=== PATIENT | female | born 1995 | race Caucasian/White ===

== ENCOUNTER 2017-02-07 21:32 | Emergency (ER) | payer BC, MEDICAID ==
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
[2017-02-07 22:25] LABS: ACETAMINOPHEN < 3.0 ug/mL; CHLORIDE,CL 108 mmol/L (98-110); SODIUM,NA 137 mmol/L (136-146)
[2017-02-07 23:57] VITALS: BP 129/86
== END 2017-02-07 23:37 ==
LOC: MW.ED 21:32
DX: O9A.219 Injury, poisoning and certain other consequences of external causes complicating pregnancy, unspecified trimester (principal); O99.340 Other mental disorders complicating pregnancy, unspecified trimester; T43.222A Poisoning by selective serotonin reuptake inhibitors, intentional self-harm, initial encounter; K21.9 Gastro-esophageal reflux disease without esophagitis; Z88.1 Allergy status to other antibiotic agents; Z86.2 Personal history of diseases of the blood and blood-forming organs and certain disorders involving the immune mechanism
CPT/HCPCS: 36415; 80053; 80305; 81001; 81025; 84443; 85025; 93005; 99285; G0480; 99284

== ENCOUNTER 2017-03-11 12:33 | Emergency (ER) | payer BC, MEDICAID ==
[2017-03-11] MEDS ORDERED: Ondansetron 4 MG/2 ML SDV IVPUSH ONE (13:01)
[2017-03-11] MEDS ORDERED: Sodium Chloride 0.9% 1,000 ML IV ONE (13:01)
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
[2017-03-11 13:42] LABS: CHLORIDE,CL 106 mmol/L (98-110); SODIUM,NA 137 mmol/L (136-146)
--- NOTE | 2017-03-11 14:25 | US ---
EXAMINATION: Transabdominal obstetric ultrasound HISTORY: Evaluate and placenta COMPARISON: None TECHNIQUE: Grayscale FINDINGS: There is a single live intrauterine demonstrated. The biparietal diameter measure s 2.7 cm, head circumference measures 10.3 cm, abdominal circumference measures 9.4 cm, the femoral l ength measures 1.8 cm. This gives an estimated gestational age of 15 weeks and 2 days with an estimat ed date of delivery at 08/31/2017. The weight is 122 g. Overall the fetus is within the 2nd perce ntile by LMP. The heart rate is 150 bpm. The placenta is anterior and initially demonstrated th ickening of the underlying uterine wall, however on additional imaging obtained, this was absent sugg esting a contraction. IMPRESSION: 1. Single live intrauterine , measuring 15 weeks and 2 days by dates, the gestational age by LMP is 19 weeks and 2 days. 2. The appendix is not visualized.
[2017-03-11 15:32] VITALS: BP 105/70
== END 2017-03-11 15:20 | disposition home or self-care (01) ==
LOC: MW.ED 12:33
DX: O99.89 Other specified diseases and conditions complicating pregnancy, childbirth and the puerperium (principal); R10.2 Pelvic and perineal pain; O99.612 Diseases of the digestive system complicating pregnancy, second trimester; K21.9 Gastro-esophageal reflux disease without esophagitis; Z79.899 Other long term (current) drug therapy; Z86.2 Personal history of diseases of the blood and blood-forming organs and certain disorders involving the immune mechanism; Z88.1 Allergy status to other antibiotic agents; Z3A.18 18 weeks gestation of pregnancy
CPT/HCPCS: 36415; 76805; 80053; 81001; 84702; 85025; 93005; 96361; 96374; 99284; J2405; J7040; 99283

== ENCOUNTER 2017-06-15 20:01 | Emergency (ER) | payer BC, MEDICAID ==
[2017-06-15] MEDS ORDERED: Sodium Chloride 0.9% 1,000 ML IV ONE (20:21)
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
[2017-06-15 21:01] LABS: CHLORIDE,CL 110 mmol/L (98-110); SODIUM,NA 137 mmol/L (136-146)
[2017-06-15 21:46] VITALS: BP 104/59
== END 2017-06-15 21:50 | disposition home or self-care (01) ==
LOC: MW.ED 20:01
DX: O99.513 Diseases of the respiratory system complicating pregnancy, third trimester (principal); J01.00 Acute maxillary sinusitis, unspecified; B34.9 Viral infection, unspecified; Z88.1 Allergy status to other antibiotic agents; Z3A.29 29 weeks gestation of pregnancy
CPT/HCPCS: 36415; 80053; 81001; 85025; 87081; 87804; 87880; 96360; 99283; J7040; 99284

== ENCOUNTER 2017-07-09 18:25 | Observation (INO) | payer BC, MEDICAID ==
[2017-07-09] MEDS ORDERED: Sodium Chloride 0.9% 2.5 ML Syringe FLUSH PRN (19:17)
[2017-07-09] MEDS ORDERED: Sodium Chloride 0.9% 10 ML Syringe FLUSH PRN (19:17)
[2017-07-09] MEDS ORDERED: Sodium Chloride 0.9% 1,000 ML IV ONE ×3 (19:17→21:35)
[2017-07-09] MEDS ORDERED: Ondansetron 4 MG/2 ML SDV IVPUSH ONE ×2 (19:17→21:05)
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
[2017-07-09 19:59] LABS: CHLORIDE,CL 109 mmol/L (98-110); SODIUM,NA 136 mmol/L (136-146)
[2017-07-09] MEDS ORDERED: Acetaminophen 325 MG Tab PO PRN (23:59)
[2017-07-10] MEDS: Ondansetron 4 MG/2 ML SDV IVPUSH PRN ×3 (00:26→14:33)
[2017-07-10] MEDS: Sodium Chloride 0.9% 1,000 ML IV SCH ×2 (04:09→09:20)
[2017-07-10 13:49] VITALS: BP 126/74
--- NOTE | 2017-07-10 15:36 | PCM.PN ---
- General Info Date of Service: 07/10/17 Functional Status: Reports: Pain Controlled - Review of Systems General: Reports: No Symptoms HEENT: Reports: No Symptoms Pulmonary: Reports: No Symptoms Cardiovascular: Reports: No Symptoms Gastrointestinal: Reports: No Symptoms Genitourinary: Reports: No Symptoms Musculoskeletal: Reports: No Symptoms Skin: Reports: No Symptoms Neurological: Reports: No Symptoms Psychiatric: Reports: No Symptoms - Patient Data Vitals - Most Recent: Last Vital Signs Temp 35.8 C 07/10/17 12:00 Pulse 92 07/10/17 12:00 Resp 16 07/10/17 12:00 BP 126/74 07/10/17 12:00 Pulse Ox 100 07/10/17 12:00 Weight - Most Recent: 73.164 kg I&O - Last 24 Hours: Intake & Output 07/10/17 07/10/17 07/10/17 06:59 14:59 22:59 Intake Total 1350 Output Total 300 Balance 1050 Lab Results Last 24 Hours: Laboratory Results - last 24 hr 07/10/17 Range/Units 04:34 WBC 4.87 (4.0-11.0) K/uL RBC 3.28 L (4.30-5.90) M/uL Hgb 9.4 L (12.0-16.0) g/dL Hct 28.1 L (36.0-46.0) % MCV 85.7 (80.0-98.0) fL MCH 28.7 (27.0-32.0) pg MCHC 33.5 (31.0-37.0) g/dL RDW Std Deviation 43.0 (28.0-62.0) fl RDW Coeff of Yael 14 (11.0-15.0) % Plt Count 124 L (150-400) K/uL MPV 11.70 (7.40-12.00) fL Add Manual Diff YES Neutrophils % (Manual) 69 (48.0-80.0) % Band Neutrophils % 6 % Lymphocytes % (Manual) 15 L (16.0-40.0) % Monocytes % (Manual) 10 (0.0-15.0) % Nucleated RBC % 0.0 /100WBC Absolute Seg Neuts 3.4 (1.4-5.7) Band Neutrophils # 0.3 Lymphocytes # (Manual) 0.7 (0.6-2.4) Monocytes # (Manual) 0.5 (0.0-0.8) Nucleated RBCs # 0 K/uL Med Orders - Current: Current Medications Acetaminophen (Tylenol) 325 - 650 mg PO Q4H PRN PRN Reason: Pain Last Admin: 07/10/17 00:26 Dose: 650 mg Sodium Chloride (Normal Saline) 1,000 mls @ 200 mls/hr IV ASDIRECTED SONIA Last Admin: 07/10/17 09:20 Dose: 200 mls/hr Ondansetron HCl (Zofran) 4 mg IVPUSH Q4H PRN PRN Reason: Nausea/Vomiting Last Admin: 07/10/17 14:33 Dose: 4 mg Sodium Chloride (Saline Flush) 10 ml FLUSH ASDIRECTED PRN PRN Reason: Keep Vein Open Last Admin: 07/09/17 19:33 Dose: 10 ml Sodium Chloride (Saline Flush) 2.5 ml FLUSH ASDIRECTED PRN PRN Reason: Keep Vein Open Last Admin: 07/09/17 19:33 Dose: 2.5 ml Discontinued Medications Sodium Chloride (Normal Saline) 1,000 mls @ 999 mls/hr IV STAT ONE Stop: 07/09/17 20:17 Last Admin: 07/09/17 19:34 Dose: 999 mls/hr Sodium Chloride (Normal Saline) 1,000 mls @ 999 mls/hr IV STAT ONE Stop: 07/09/17 21:09 Last Admin: 07/09/17 20:18 Dose: 999 mls/hr Sodium Chloride (Normal Saline) 1,000 mls @ 125 mls/hr IV STAT ONE Stop: 07/10/17 05:34 Last Admin: 07/09/17 21:36 Dose: 125 mls/hr Ondansetron HCl (Zofran) 4 mg IVPUSH ONETIME ONE Stop: 07/09/17 19:18 Last Admin: 07/09/17 19:33 Dose: 4 mg Ondansetron HCl (Zofran) 4 mg IVPUSH ONETIME ONE Stop: 07/09/17 21:06 Last Admin: 07/09/17 21:35 Dose: 4 mg - Exam General: Alert, Oriented HEENT: Pupils Equal, Pupils Reactive, EOMI, Mucous Membr. Moist/[place] Neck: Supple Lungs: Clear to Auscultation, Normal Respiratory Effort Cardiovascular: Regular Rate, Regular Rhythm GI/Abdominal Exam: Normal Bowel Sounds, Soft, Non-Tender, No Organomegaly, No Distention, No Abnormal Bruit, No Mass, Pelvis Stable (Female) Exam: Normal External Exam, Normal Speculum Exam, Normal Bimanual Exam Back Exam: Normal Inspection, Full Range of Motion Extremities: Normal Inspection, Normal Range of Motion, Non-Tender, No Pedal Edema, Normal Capillary Refill Skin: Warm, Dry, Intact Wound/Incisions: Healing Well Neurological: No New Focal Deficit Psy/Mental Status: Alert, Normal Affect, Normal Mood - Problem List Review Problem List Initiated/Reviewed/Updated: Yes - My Orders Last 24 Hours: My Active Orders 07/09/17 23:45 Sodium Chloride 0.9% [Normal Saline] 1,000 ml IV ASDIRECTED 07/09/17 23:59 Acetaminophen [Tylenol] 325 - 650 mg PO Q4H PRN 07/10/17 00:01 Ondansetron [Zofran] 4 mg IVPUSH Q4H PRN 07/10/17 08:00 Heart Tones [RC] Q12H Vital Signs [RC] Q12H 07/10/17 Breakfast Regular Diet [DIET] - Assessment Assessment:: Intrauterine 30+ week and the patient is to have upper respiratory tract infection and nose and vomited she is admitted through the emergency room for hydration the patient is not hydrated reasonably well voiding without any problem and had lab work is normal - Plan Plan:: The patient expressed her desire to go home would send her home with a prescription of Zofran 4 mg sublingual for nausea and vomiting and I told her to come to the office on Saturday for follow-up exam
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
== END 2017-07-10 16:50 | disposition home or self-care (01) ==
LOC: MW.ED 18:25 → MW.MS 21:47
PROVIDERS: ADMIT Obstetrics & Gynecology; ATTEND Obstetrics & Gynecology
DX: O21.8 Other vomiting complicating pregnancy (principal); O99.513 Diseases of the respiratory system complicating pregnancy, third trimester; J06.9 Acute upper respiratory infection, unspecified; Z3A.32 32 weeks gestation of pregnancy; Z88.1 Allergy status to other antibiotic agents; Z91.048 Other nonmedicinal substance allergy status
CPT/HCPCS: 36415; 80053; 81001; 85025; 96361; 96374; 96376; 99285; A9270; G0378; J2405; J7040; 99284

== ENCOUNTER 2017-08-26 04:55 | Inpatient (IN) | payer BC, MEDICAID ==
[2017-08-26] MEDS: Lactated Ringers 1,000 ML IV SCH ×2 (05:30→07:50)
[2017-08-26] MEDS ORDERED: Sodium Chloride 0.9% 2.5 ML Syringe FLUSH PRN (05:32)
[2017-08-26] MEDS ORDERED: Sodium Chloride 0.9% 10 ML Syringe FLUSH PRN (05:32)
[2017-08-26] MEDS ORDERED: Oxytocin/0.9 % Sodium Chloride 30 UNIT/500 ML BAG IV SCH (05:45)
[2017-08-26] MEDS: Citric Acid/Sodium Citrate Solution 30 ML Cup PO SCH ×2 (07:08→08:03)
[2017-08-26] MEDS ORDERED: Octyl 2-Cyanoacrylate 1 Tube ONE (07:30)
[2017-08-26] MEDS ORDERED: Propofol 200 MG/20 ML SDV ONE (07:35)
[2017-08-26] MEDS ORDERED: Ketorolac 30 MG/ML SDV ONE (07:36)
[2017-08-26] MEDS ORDERED: Ondansetron 4 MG/2 ML SDV ONE (07:36)
[2017-08-26] MEDS ORDERED: Morphine PF 1 MG/ML Amp ONE (07:39)
[2017-08-26] MEDS ORDERED: ePHEDrine 50 MG/ML SDV ONE (07:39)
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
[2017-08-26] MEDS: Ketorolac 30 MG/ML SDV IVPUSH SCH ×4 (08:35→21:01)
[2017-08-26] MEDS ORDERED: Oxytocin 10 Units/1 ML SDV ONE (08:45)
--- NOTE | 2017-08-26 08:57 | PCM.OPNOTE ---
- General Post-Op/Procedure Note Date of Surgery/Procedure: 08/26/17 Operative Procedure(s): Repeat C/section Pre Op Diagnosis: IUP 39wks, previous C/section. Post-Op Diagnosis: Same Anesthesia Technique: Spinal Primary Surgeon: Rodolfo Umanzor Belt Press Operator: Madeleine Rico EBL in mLs: 600 Complications: None Condition: Good
[2017-08-26] MEDS ORDERED: Acetaminophen/oxyCODONE 325-5 MG Tab PO PRN ×3 (08:59→09:44)
[2017-08-26] MEDS ORDERED: Lanolin 100% Cream 7 GM Tube TOP PRN (08:59)
[2017-08-26] MEDS ORDERED: Bisacodyl 10 MG Supp RECTAL PRN (08:59)
[2017-08-26] MEDS ORDERED: Ondansetron 4 MG/2 ML SDV IV PRN (08:59)
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
[2017-08-26] MEDS ORDERED: Lactated Ringers 1,000 ML IV SCH (09:00)
--- NOTE | 2017-08-26 09:32 | PCM.POSTAN ---
POST ANESTHESIA ASSESSMENT - MENTAL STATUS Mental Status: Alert, Oriented - RESPIRATORY Respiratory Status: Respiratory Rate WNL, Airway Patent, O2 Saturation Stable - CARDIOVASCULAR CV Status: Pulse Rate WNL, Blood Pressure Stable - GASTROINTESTINAL GI Status: No Symptoms - POST OP HYDRATION Hydration Status: Adequate & Stable
[2017-08-26] MEDS ORDERED: fentaNYL 100 MCG/2 ML SDV IVPUSH PRN (09:44)
[2017-08-26] MEDS: Nalbuphine 10 MG/1 ML Vial IVPUSH PRN ×3 (10:08→17:20)
[2017-08-26] MEDS: Docusate Sodium 100 MG Cap PO SCH ×2 (10:57→20:59)
--- NOTE | 2017-08-26 14:18 | PCM48HPAN ---
Post Anesthesia Note - EVALUATION WITHIN 48HRS OF ANESTHETIC Vital Signs in Normal Range: Yes Patient Participated in Evaluation: Yes Respiratory Function Stable: Yes Airway Patent: Yes Cardiovascular Function Stable: Yes Hydration Status Stable: Yes Pain Control Satisfactory: Yes Nausea and Vomiting Control Satisfactory: Yes Mental Status Recovered: Yes Resp Rate: 18 - COMMENTS/OBSERVATIONS Free Text/Narrative:: Pt is having some problems with pruritis r/t the duramorph. She has received one dose of nubain and states it didn't help. Discussed with pt's nurse trying iv benadryl next. No apparent anesthesia complications.
[2017-08-26] MEDS: diphenhydrAMINE 50 MG/ML SDV IVPUSH PRN ×2 (14:21→20:59)
--- NOTE | 2017-08-26 21:03 | OR ---
SURGEON: Rodolfo Umanzor MD DATE OF PROCEDURE: PREOPERATIVE DIAGNOSES: Intrauterine at 39 weeks, previous section x2. POSTOPERATIVE DIAGNOSES: Intrauterine at 39 weeks, previous section x2. OPERATION PERFORMED: Repeat low transverse section. GETTERER: Madeleine Rico CNM. ANESTHESIA: Spinal. ANESTHESIOLOGIST: Anthony Hernandez and Dr. Guerra. ESTIMATED BLOOD LOSS: 600 mL. COMPLICATIONS: None. FINDING: Male fetus. score reported to be 8 and 9. The weight is not available at this time. INDICATION FOR SURGERY: The patient is aged 22. She had 2 previous sections. She is term. She is followed in our office without any significant problem. Her GBS status was negative. She is admitted for elective repeat section. PROCEDURE IN DETAIL: The patient was brought to the OR, properly identified, and after adequate level of the spinal anesthesia with a Brady catheter in the bladder, time-out was taken, and the patient was prepped and draped in sterile fashion as usual. Low transverse Pfannenstiel skin incision was done. Eddie fascia and rectus fascia were opened in direction of the incision. The 2 recti muscles were and the peritoneal cavity was entered. The bladder flap was raised in the usual manner pushing the bladder away from the lower uterine segment. Low transverse uterine incision was done, extended manually with the hand, fetus was in a vertex position, delivered without any problem. Fetus cried immediately and was male and the score reported to be 8 and 9. Then, the placenta delivered spontaneous, complete, and intact, and repair of the lower uterine segment was done with 2-0 Vicryl continuous interlocking for hemostasis. Reperitonealization done with 3-0 Vicryl continuous. The peritoneal cavity evacuated completely from all blood and blood clot and closed with 3-0 Vicryl continuous and then the rectus fascia was closed with #1 PDS continuous. The Eddie fascia with 3-0 Vicryl continuous and skin closed in a subcuticular manner using 3-0 Vicryl on a Cornelius needle and Dermabond. Instrument and sponge count was correct. The patient tolerated the procedure well and went to recovery room in stable general condition. DIVINA / AMBAR /[id number]
[2017-08-27] MEDS: Ketorolac 30 MG/ML SDV IVPUSH SCH ×2 (03:13→08:32)
[2017-08-27] MEDS: diphenhydrAMINE 50 MG/ML SDV IVPUSH PRN ×2 (03:14→09:14)
[2017-08-27] MEDS: Nalbuphine 10 MG/1 ML Vial IVPUSH PRN (04:29)
[2017-08-27] MEDS: Docusate Sodium 100 MG Cap PO SCH ×2 (08:32→20:39)
--- NOTE | 2017-08-27 08:34 | PCM.PNPP ---
- General Info Date of Service: 08/27/17 Functional Status: Reports: Pain Controlled - Review of Systems General: Reports: No Symptoms HEENT: Reports: No Symptoms Pulmonary: Reports: No Symptoms Cardiovascular: Reports: No Symptoms Gastrointestinal: Reports: No Symptoms Genitourinary: Reports: No Symptoms Musculoskeletal: Reports: No Symptoms Skin: Reports: No Symptoms Neurological: Reports: No Symptoms Psychiatric: Reports: No Symptoms - General Info Date of Service: 08/27/17 - Patient Data Vital Signs - Most Recent: Last Vital Signs Temp 36.4 C 08/27/17 07:17 Pulse 72 08/27/17 07:17 Resp 16 08/27/17 08:31 BP 124/79 08/27/17 07:17 Pulse Ox 100 08/27/17 08:31 Weight - Most Recent: 73.936 kg I&O - Last 24 Hours: Intake & Output 08/26/17 08/27/17 08/27/17 22:59 06:59 14:59 Output Total 650 1000 Balance -650 -1000 Lab Results - Last 24 Hours: Laboratory Results - last 24 hr 08/27/17 Range/Units 05:35 Hgb 8.9 L (12.0-16.0) g/dL Hct 28.0 L (36.0-46.0) % Med Orders - Current: Current Medications Bisacodyl (Dulcolax) 10 mg RECTAL .ONCE PRN PRN Reason: Constipation Citric Acid/Sodium Citrate (Bicitra Solution) 30 ml PO .ONCE SONIA Last Admin: 08/26/17 08:03 Dose: 30 ml Diphenhydramine HCl (Benadryl) 25 mg IVPUSH Q6H PRN PRN Reason: Itching or Nausea Last Admin: 08/27/17 03:14 Dose: 25 mg Docusate Sodium (Colace) 100 mg PO BID SONIA Last Admin: 08/27/17 08:32 Dose: 100 mg Emollient Ointment (Lansinoh Hpa) 0 gm TOP ASDIRECTED PRN PRN Reason: Sore Nipples Fentanyl (Sublimaze) 50 mcg IVPUSH Q5M PRN PRN Reason: Pain (severe 7-10) Stop: 08/27/17 09:44 Lactated Ringer's (Ringers, Lactated) 1,000 mls @ 500 mls/hr IV .BOLUS SONIA Last Admin: 08/26/17 07:50 Dose: 500 mls/hr Oxytocin/Sodium Chloride (Oxytocin 30 Unit/500 Ml-Ns) 30 unit in 500 mls @ 250 mls/hr IV TITRATE [facility] Lactated Ringer's (Ringers, Lactated) 1,000 mls @ 125 mls/hr IV ASDIRECTED [facility] Ibuprofen (Motrin) 800 mg PO Q8H PRN PRN Reason: mild pain or fever Ketorolac Tromethamine (Toradol) 30 mg IVPUSH Q6H SONIA Stop: 08/27/17 09:01 Last Admin: 08/27/17 08:32 Dose: 30 mg Nalbuphine HCl (Nubain) 2.5 mg IVPUSH Q3H PRN PRN Reason: Pruritis Stop: 08/27/17 09:44 Last Admin: 08/27/17 04:29 Dose: 2.5 mg Ondansetron HCl (Zofran) 4 mg IV Q4H PRN PRN Reason: Nausea/Vomiting Last Admin: 08/26/17 13:16 Dose: 4 mg Oxycodone/Acetaminophen (Percocet 325-5 Mg) 1 tab PO Q4H PRN PRN Reason: Pain (moderate 4-6) Oxycodone/Acetaminophen (Percocet 325-5 Mg) 2 tab PO Q4H PRN PRN Reason: Pain (moderate 4-6) Oxycodone/Acetaminophen (Percocet 325-5 Mg) 1 tab PO ONETIME PRN PRN Reason: Pain (moderate 4-6) Sodium Chloride (Saline Flush) 10 ml FLUSH ASDIRECTED PRN PRN Reason: Keep Vein Open Sodium Chloride (Saline Flush) 2.5 ml FLUSH ASDIRECTED PRN PRN Reason: Keep Vein Open Discontinued Medications Ephedrine Sulfate (Ephedrine Sulfate) Confirm Administered Dose 100 mg .ROUTE .STK-MED ONE Stop: 08/26/17 07:40 Ketorolac Tromethamine (Toradol) Confirm Administered Dose 30 mg .ROUTE .STK- MED ONE Stop: 08/26/17 07:37 Morphine Sulfate (Duramorph Pf) Confirm Administered Dose 1 mg .ROUTE .STK-MED ONE Stop: 08/26/17 07:40 Octyl Cyanoacrylate (Dermabond Advance) Confirm Administered Dose 1 applic .ROUTE .STK-MED ONE Stop: 08/26/17 07:31 Ondansetron HCl (Zofran) Confirm Administered Dose 4 mg .ROUTE .STK-MED ONE Stop: 08/26/17 07:37 Oxytocin (Pitocin) Confirm Administered Dose 10 unit .ROUTE .STK-MED ONE Stop: 08/26/17 08:46 Propofol (Diprivan 20 Ml) Confirm Administered Dose 200 mg .ROUTE .STK-MED ONE Stop: 08/26/17 07:36 - Infant Interaction Infant Disposition, : [place] in Room with Family Infant Interaction: Holding Feeding: Attempted ; Nursed Fair/Poor Support Person: Significant Other - Recovery Exam Fundal Tone: Firm Fundal Level: 1 Fingerbreadths Below Umbilicus Fundal Placement: Midline Lochia Amount: Scant Lochia Color: Rubra/Red Perineum Description: Intact, Minimal Bruising/Swelling Episiotomy/Laceration: None Bladder Status: Nonpalpable, Indwelling Catheter in Place Urinary Elimination: Indwelling Catheter - Exam General: Alert, Oriented HEENT: Pupils Equal Neck: Supple Lungs: Clear to Auscultation, Normal Respiratory Effort Cardiovascular: Regular Rate, Regular Rhythm GI/Abdominal Exam: Normal Bowel Sounds, Soft, Non-Tender, No Organomegaly, No Distention, No Abnormal Bruit, No Mass, Pelvis Stable Extremities: Normal Inspection, Normal Range of Motion, Non-Tender, No Pedal Edema, Normal Capillary Refill Skin: Warm, Dry, Intact Wound/Incisions: Healing Well Neurological: No New Focal Deficit Psy/Mental Status: Alert, Normal Affect, Normal Mood - Problem List Review Problem List Initiated/Reviewed/Updated: Yes - My Orders Last 24 Hours: My Active Orders 08/26/17 08:59 Acetaminophen/oxyCODONE [Percocet 325-5 MG] 1 tab PO Q4H PRN Acetaminophen/oxyCODONE [Percocet 325-5 MG] 2 tab PO Q4H PRN Bisacodyl [Dulcolax] 10 mg RECTAL .ONCE PRN Ibuprofen [Motrin] 800 mg PO Q8H PRN Lanolin [Lansinoh HPA] See Dose Instructions TOP ASDIRECTED PRN Ondansetron [Zofran] 4 mg IV Q4H PRN diphenhydrAMINE [Benadryl] 25 mg IVPUSH Q6H PRN 08/26/17 09:00 Patient Status [ADT] Routine Ambulate [RC] PER UNIT ROUTINE Antiembolic Devices [RC] PER UNIT ROUTINE Communication Order [RC] PER UNIT ROUTINE Communication Order [RC] PER UNIT ROUTINE Communication Order [RC] Per Unit Routine May Shower [RC] ASDIRECTED RT Incentive Spirometry [RC] Q2HWA Vital Signs [RC] PER UNIT ROUTINE Docusate Sodium [Colace] 100 mg PO BID Ketorolac [Toradol] 30 mg IVPUSH Q6H Lactated Ringers [Ringers, Lactated] 1,000 ml IV ASDIRECTED Assess Lochia [WOMSER] Per Unit Routine Assess Uterine Involution [WOMSER] Per Unit Routine Breast Pump [WOMSER] Per Unit Routine Peripheral IV Discontinue [OM.PC] Routine Sequential Compression Device [OM.PC] Per Unit Routine 08/26/17 Lunch Regular Diet [DIET] - Assessment Assessment:: Status post repeat section postoperative day #1 patient doing well incision is clean dry normal lochia she is on regular diet she is ambulatory Brady catheter is DC'd and she is voiding freely without any problem. We are planning to discharge patient home in a.m. - Plan Plan:: IUP 39 wks admitted for elective repeat C/section.
[2017-08-27] MEDS: Ibuprofen 800 MG Tab PO PRN (16:26)
[2017-08-28] MEDS: Ibuprofen 800 MG Tab PO PRN (00:26)
[2017-08-28] MEDS: Docusate Sodium 100 MG Cap PO SCH (08:00)
--- NOTE | 2017-08-28 08:05 | PCM.DCSUM1 ---
Discharge Summary - Hospital Course Free Text/Narrative:: Discharge home with . Follow up in 10 days and then in 6 weeks or sooner if needed. - Discharge Data Discharge Date: 08/28/17 Discharge Disposition: Home, Self-Care 01 Condition: Good - Patient Summary/Data Operative Procedure(s) Performed: Repeat C/section - Patient Instructions Diet: Usual Diet as Tolerated Activity: As Tolerated, No Strenuous Activities, Rest and Relax Today Driving: May Drive Today Showering/Bathing: May Shower Wound/Incision Care: Keep Operative Site/Wound Site Clean and Dry Notify Provider of: Fever, Increased Pain, Swelling and Redness, Drainage, Nausea and/or Vomiting Other/Special Instructions: Discharge home with infant. Follow up in 10 days and then in 6 weeks or sooner if needed. - Discharge Plan Home Medications: Home Meds Pnv No.95/Ferrous Fum/Folic AC [ Multivitamin Tablet] 1 each PO DAILY [History] Patient Handouts: Home Care Instructions for Mom, Care After Delivery Referrals: [facility] [Outside] Rodolfo Umanzor MD [Physician] - (1 week- September 04 @ 10:45am w/ Dr. Umanzor 6 week- October 07 @ 8:30am w/ Dr. Umanzor ) - General Info Date of Service: 08/28/17 Admission Dx/Problem (Free Text: Patient Status Order with Admit Dx/Problem 08/26/17 05:32 Patient Status [ADT] Routine Admission Diagnosis/Problem Admission Diagnosis/Problem Functional Status: Reports: Pain Controlled, Tolerating Diet, Ambulating, Urinating - Review of Systems General: Reports: No Symptoms HEENT: Reports: No Symptoms Pulmonary: Reports: No Symptoms Cardiovascular: Reports: No Symptoms Gastrointestinal: Reports: No Symptoms Genitourinary: Reports: No Symptoms Musculoskeletal: Reports: No Symptoms Skin: Reports: No Symptoms Neurological: Reports: No Symptoms Psychiatric: Reports: No Symptoms - Patient Data Vitals - Most Recent: Last Vital Signs Temp 36.6 C 08/28/17 05:00 Pulse 82 08/28/17 05:00 Resp 18 08/28/17 05:00 BP 108/73 08/28/17 05:00 Pulse Ox 96 08/28/17 05:00 Weight - Most Recent: 73.936 kg Med Orders - Current: Current Medications Bisacodyl (Dulcolax) 10 mg RECTAL .ONCE PRN PRN Reason: Constipation Citric Acid/Sodium Citrate (Bicitra Solution) 30 ml PO .ONCE SONIA Last Admin: 08/26/17 08:03 Dose: 30 ml Diphenhydramine HCl (Benadryl) 25 mg IVPUSH Q6H PRN PRN Reason: Itching or Nausea Last Admin: 08/27/17 09:14 Dose: 25 mg Docusate Sodium (Colace) 100 mg PO BID [facility] Last Admin: 08/28/17 08:00 Dose: 100 mg Emollient Ointment (Lansinoh Hpa) 0 gm TOP ASDIRECTED PRN PRN Reason: Sore Nipples Lactated Ringer's (Ringers, Lactated) 1,000 mls @ 500 mls/hr IV .BOLUS [facility] Last Admin: 08/26/17 07:50 Dose: 500 mls/hr Oxytocin/Sodium Chloride (Oxytocin 30 Unit/500 Ml-Ns) 30 unit in 500 mls @ 250 mls/hr IV TITRATE [facility] Lactated Ringer's (Ringers, Lactated) 1,000 mls @ 125 mls/hr IV ASDIRECTED [facility] Ibuprofen (Motrin) 800 mg PO Q8H PRN PRN Reason: mild pain or fever Last Admin: 08/28/17 00:26 Dose: 800 mg Ondansetron HCl (Zofran) 4 mg IV Q4H PRN PRN Reason: Nausea/Vomiting Last Admin: 08/26/17 13:16 Dose: 4 mg Oxycodone/Acetaminophen (Percocet 325-5 Mg) 1 tab PO Q4H PRN PRN Reason: Pain (moderate 4-6) Last Admin: 08/27/17 12:44 Dose: 1 tab Oxycodone/Acetaminophen (Percocet 325-5 Mg) 2 tab PO Q4H PRN PRN Reason: Pain (moderate 4-6) Last Admin: 08/27/17 19:26 Dose: 2 tab Oxycodone/Acetaminophen (Percocet 325-5 Mg) 1 tab PO ONETIME PRN PRN Reason: Pain (moderate 4-6) Last Admin: 08/28/17 07:59 Dose: 1 tab Sodium Chloride (Saline Flush) 10 ml FLUSH ASDIRECTED PRN PRN Reason: Keep Vein Open Sodium Chloride (Saline Flush) 2.5 ml FLUSH ASDIRECTED PRN PRN Reason: Keep Vein Open Discontinued Medications Ephedrine Sulfate (Ephedrine Sulfate) Confirm Administered Dose 100 mg .ROUTE .STK-MED ONE Stop: 08/26/17 07:40 Fentanyl (Sublimaze) 50 mcg IVPUSH Q5M PRN PRN Reason: Pain (severe 7-10) Stop: 08/27/17 09:44 Ketorolac Tromethamine (Toradol) Confirm Administered Dose 30 mg .ROUTE .STK- MED ONE Stop: 08/26/17 07:37 Ketorolac Tromethamine (Toradol) 30 mg IVPUSH Q6H SONIA Stop: 08/27/17 09:01 Last Admin: 08/27/17 08:32 Dose: 30 mg Morphine Sulfate (Duramorph Pf) Confirm Administered Dose 1 mg .ROUTE .STK-MED ONE Stop: 08/26/17 07:40 Nalbuphine HCl (Nubain) 2.5 mg IVPUSH Q3H PRN PRN Reason: Pruritis Stop: 08/27/17 09:44 Last Admin: 08/27/17 04:29 Dose: 2.5 mg Octyl Cyanoacrylate (Dermabond Advance) Confirm Administered Dose 1 applic .ROUTE .STK-MED ONE Stop: 08/26/17 07:31 Ondansetron HCl (Zofran) Confirm Administered Dose 4 mg .ROUTE .STK-MED ONE Stop: 08/26/17 07:37 Oxytocin (Pitocin) Confirm Administered Dose 10 unit .ROUTE .STK-MED ONE Stop: 08/26/17 08:46 Propofol (Diprivan 20 Ml) Confirm Administered Dose 200 mg .ROUTE .STK-MED ONE Stop: 08/26/17 07:36 - Exam General: Reports: Alert, Oriented, Cooperative, No Acute Distress Lungs: Reports: Clear to Auscultation, Normal Respiratory Effort Cardiovascular: Reports: Regular Rate, Regular Rhythm, No Murmurs GI/Abdominal Exam: Soft, Non-Tender (Female) Exam: Vaginal Bleeding Rectal (Female) Exam: Deferred Back Exam: Reports: Full Range of Motion Extremities: Normal Range of Motion, Non-Tender, No Pedal Edema, Normal Capillary Refill Skin: Reports: Warm, Dry, Intact Wound/Incisions: Reports: Healing Well, No Drainage Neurological: Reports: No New Focal Deficit, Normal Speech, Normal Tone Psy/Mental Status: Reports: Alert, Normal Affect, Normal Mood *Q Meaningful Use (DIS) - VTE *Q VTE Criteria *Q: - Stroke *Q Stroke Criteria *Q: - AMI *Q AMI Criteria *Q:
[2017-08-28 08:40] VITALS: BP 119/75
[2017-08-28] MEDS ORDERED: Measles, Mumps & Rubella Vaccine 0.5 ML SDV SUBCUT ONE (08:51)
== END 2017-08-28 09:50 | disposition home or self-care (01) | DRG 540 ==
LOC: MW.OB 04:55
PROVIDERS: ADMIT Obstetrics & Gynecology; ATTEND Obstetrics & Gynecology
PROC: 10D00Z1 Extraction of Products of Conception, Low, Open Approach (ICD-10-PCS; principal; 2017-08-26)
DX: O34.211 Maternal care for low transverse scar from previous cesarean delivery (principal); Z3A.39 39 weeks gestation of pregnancy; Z37.0 Single live birth
CPT/HCPCS: 01961; 36415; 85014; 85018; 85027; 86850; 86900; 86901; 90707; A9270-GY; G0010; J1200; J1885; J2274; J2300; J2405; J2590; J2704; J7120

== ENCOUNTER 2017-12-31 13:42 | Emergency (ER) | payer BC, MEDICAID ==
[2017-12-31 14:03] VITALS: BP 113/80
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
[2017-12-31] MEDS ORDERED: Ketorolac 60 MG/2 ML SDV IM ONE (14:25)
--- NOTE | 2017-12-31 15:45 | CT ---
EXAMINATION: Non contrast CT head and facial bones. Coronal and sagittal reformats. HISTORY: Head injury FINDINGS: CT head: No evidence of intra or extra axial hemorrhage, mass, midline shift, hydrocephalus or edema . No hypoattenuation changes in the major vascular territories to suggest acute infarct. No abnorma l intracranial calcifications are detected. No evidence of substantial vascular calcifications. P ituitary fossa appears unremarkable. Calvarium is intact. No evidence of skull fracture. Facial bones: The nasal bones appear intact. Zygomatic arches and pterygoid plates are preserved. Max illary and orbital sousa are preserved. Ethmoid air cells are clear. Mucosal thickening noted within the sphenoid sinuses. The maxilla is otherwise intact. The mandible is preserved. Orbits and globes a re symmetric. Mastoid air cells and middle ears are clear. IMPRESSION: 1. No acute intracranial findings. 2. No evidence of acute facial bone injury.
--- NOTE | 2017-12-31 15:46 | CT ---
EXAMINATION: CT cervical spine HISTORY: Head injury COMPARISON: None TECHNIQUE: Axial CT images obtained through the cervical spine without contrast. Coronal and sagittal reconstructions obtained. FINDINGS: There is no acute osseous abnormality, dislocation, or fracture. Cervical spinal alignment appears normal. Vertebral body heights and disc spaces appear well-maintained. Bone mineralization is normal. Prevertebral soft tissues are preserved. Lung apices are clear. IMPRESSION: No acute cervical spinal abnormality.
== END 2017-12-31 16:15 | disposition home or self-care (01) ==
LOC: MW.ED 13:42
DX: S06.0X0A Concussion without loss of consciousness, initial encounter (principal); S16.1XXA Strain of muscle, fascia and tendon at neck level, initial encounter; Z79.899 Other long term (current) drug therapy; K21.9 Gastro-esophageal reflux disease without esophagitis; Y04.8XXA Assault by other bodily force, initial encounter
CPT/HCPCS: 70450; 70486; 72125; 81025; 96372; 99284; J1885

== ENCOUNTER 2018-09-08 16:46 | Emergency (ER) | payer BC, MEDICAID ==
[2018-09-08] MEDS ORDERED: Sodium Chloride 0.9% 10 ML Syringe FLUSH PRN (16:51)
[2018-09-08] MEDS ORDERED: Sodium Chloride 0.9% 2.5 ML Syringe FLUSH PRN (16:51)
[2018-09-08] MEDS ORDERED: HYDROmorphone 2 MG/ML Syringe IVPUSH ONE ×2 (16:53→18:28)
[2018-09-08] MEDS ORDERED: diazePAM 5 MG/ML MDV IV ONE ×2 (16:53→18:28)
[2018-09-08] MEDS ORDERED: Ondansetron 4 MG/2 ML SDV IVPUSH ONE (16:53)
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
[2018-09-08 17:32] LABS: CHLORIDE,CL 106 mmol/L (98-107); SODIUM,NA 140 mmol/L (136-145)
[2018-09-08] MEDS ORDERED: Iopamidol 755 MG/ML 500 ML Multipack Bottle IVPUSH STA (17:46)
--- NOTE | 2018-09-08 18:17 | CT ---
INDICATION: Trauma. Back pain TECHNIQUE: Non-contrast axial CT of the lumbar spine with coronal and sagittal reconstructions. No comparisons. FINDINGS: There is sacralization of the L5 segment. Plain film correlation recommended prior to any surgical intervention. The overall stature and alignment of the lumbar spine is within normal limits. Mild acute compression fracture of T11. No evidence of bony fragments narrowing the central canal or visualized neural foramina. IMPRESSION: 1. There is sacralization of the L5 segment. Plain film correlation recommended prior to any surgical intervention. 2. Very mild acute compression fracture of the left T11 vertebral body with no significant loss of vertical height. Dictated by Jung Dukes MD @ 09/08/2018 6:16:09 PM Please note that all CT scans at this facility use dose modulation, iterative reconstruction, and/or weight-based dosing when appropriate to reduce radiation dose to as low as reasonably achievable. Dictated by: Jung Dukes MD @ 09/08/2018 18:16:16 (Electronically Signed)
--- NOTE | 2018-09-08 18:19 | CT ---
INDICATION: Mid back pain. Trauma TECHNIQUE: Non-contrast axial CT of the thoracic spine with coronal and sagittal reconstructions. No comparisons. FINDINGS: Very mild acute compression fracture of the left T11 vertebral body with no significant loss of vertical height. The overall stature and alignment within the remainder of the thoracic spine is within normal limits. No evidence of bony fragments narrowing the central canal or visualized neural foramina. IMPRESSION: 1. Very mild acute compression fracture of the left superior T11 vertebral body with no significant loss of vertical height. Dictated by Jung Dukes MD @ 09/08/2018 6:17:51 PM Please note that all CT scans at this facility use dose modulation, iterative reconstruction, and/or weight-based dosing when appropriate to reduce radiation dose to as low as reasonably achievable. Dictated by: Jung Dukes MD @ 09/08/2018 18:17:54 (Electronically Signed)
--- NOTE | 2018-09-08 18:21 | CT ---
INDICATION: Neck pain. Trauma TECHNIQUE: Non-contrast axial CT of the cervical spine with coronal and sagittal reconstructions. Compared to prior study from December 31, 2017 FINDINGS: The overall stature and alignment of the cervical spine is within normal limits. Prevertebral soft tissues, cervical airway, dens and lateral masses are within normal limits. No evidence of bony fragments narrowing the central canal or visualized neural foramina. IMPRESSION: No radiographic evidence of acute osseous injury. Dictated by Jung Dukes MD @ 09/08/2018 6:20:35 PM Please note that all CT scans at this facility use dose modulation, iterative reconstruction, and/or weight-based dosing when appropriate to reduce radiation dose to as low as reasonably achievable. Dictated by: Jung Dukes MD @ 09/08/2018 18:20:42 (Electronically Signed)
--- NOTE | 2018-09-08 18:42 | CT ---
INDICATION: Trauma TECHNIQUE: CT chest was acquired with IV contrast. 85 mL of Isovue 370 administered. COMPARISON: None available FINDINGS: Cardiovascular structures: Heart size is normal. Thoracic aorta and main pulmonary artery are normal in caliber. Mediastinum and fabio: Small amount of low attenuation soft tissue in the anterior mediastinum could represent thymic tissue, and the adjacent major vascular structures appear grossly intact. No abnormally enlarged lymph nodes. Lungs: Clear. Pleura and pericardium: No effusions. Chest wall and axilla: No mass or adenopathy. Upper abdomen: Unremarkable. Bones: An acute fracture along the T11 superior endplate with mild focal buckling of the anterior cortex superiorly and mild focal central height loss along the left aspect of the superior endplate. IMPRESSION: No evidence of a gross acute visceral injury within the chest. Soft tissue density in the anterior mediastinum could represent thymic tissue and the adjacent major vascular structures appear grossly intact. An acute fracture along the T11 superior endplate with slight focal compression. Dictated by Christopher Pierre MD @ 09/08/2018 6:40:48 PM Please note that all CT scans at this facility use dose modulation, iterative reconstruction, and/or weight-based dosing when appropriate to reduce radiation dose to as low as reasonably achievable. Dictated by: Christopher Pierre MD @ 09/08/2018 18:40:53 (Electronically Signed)
--- NOTE | 2018-09-08 18:55 | CT ---
INDICATION: Trauma TECHNIQUE: CT abdomen and pelvis acquired with IV contrast. 85 mL of Isovue 370 administered COMPARISON: None available FINDINGS: Liver: Unremarkable. Spleen: Unremarkable. Pancreas: Unremarkable. Gallbladder and bile ducts: Unremarkable. Adrenal glands: Unremarkable. Kidneys: Mild to moderate right hydronephrosis and proximal to mid hydroureter, and left renal pelviectasis. No discrete urolithiasis seen. GI tract: Unremarkable. Appendix is normal. Vascular structures: Unremarkable. Lymph nodes: Unremarkable. Miscellaneous: No free air or significant free fluid. A small fat containing periumbilical hernia. Pelvic Organs: Unremarkable. Bones: A ariane transitional lumbosacral anatomy on the right. A fracture along the superior aspect of the T11 vertebral body. IMPRESSION: No CT evidence of a visceral or vascular injury in the abdomen or pelvis. A T11 vertebral body fracture. Mild to moderate right hydronephrosis and proximal to mid hydroureter, and left renal pelviectasis, of unclear etiology. Correlate clinically. Dictated by Christopher Pierre MD @ 09/08/2018 6:51:40 PM Please note that all CT scans at this facility use dose modulation, iterative reconstruction, and/or weight-based dosing when appropriate to reduce radiation dose to as low as reasonably achievable. Dictated by: Christopher Pierre MD @ 09/08/2018 18:54:14 (Electronically Signed)
[2018-09-08 20:22] VITALS: BP 117/82
--- NOTE | 2018-09-09 10:19 | CT ---
EXAM DATE: 09/08/18 PATIENT'S AGE: 23 Patient: BAILEY ELIZABETH Facility: [facility] Site . Site : [id number] Study: CT-Head [id number]/11/2019 5:36:51 PM Ordering Physician: Doctor Khan Final Report: INDICATION: Trauma. Headache TECHNIQUE: Non-contrast CT of the head is submitted. Compared to prior study from December 31, 2017 FINDINGS: The ventricles, sulci and gyri are of normal size, shape and contour. Midline structures are centrally located. No convincing evidence of intra- or extra- axial fluid collections. IMPRESSION: 1. Stable no radiographic evidence of acute intracranial abnormalities. Dictated by Jung Dukes MD @ 09/08/2018 6:19:08 PM Please note that all CT scans at this facility use dose modulation, iterative reconstruction, and/or weight-based dosing when appropriate to reduce radiation dose to as low as reasonably achievable. Dictated by: Jung Dukes MD @ 09/08/2018 18:19:13 Signed by: Jung Dukes MD @09/08/2018 6:19:13 PM (Electronic Signature) Report Signed by Proxy. [facility]
== END 2018-09-08 20:00 | disposition home or self-care (01) ==
LOC: MW.ED 16:46
DX: S22.089A Unspecified fracture of T11-T12 vertebra, initial encounter for closed fracture (principal); F41.9 Anxiety disorder, unspecified; F32.9 Major depressive disorder, single episode, unspecified; Z88.1 Allergy status to other antibiotic agents; Z91.09 Other allergy status, other than to drugs and biological substances; V00.221A Fall from sled, initial encounter
CPT/HCPCS: 36415; 70450; 71260; 72125; 74177; 80053; 83690; 84703; 85025; 96374; 96375; 96376; 99284; A9270; J1170; J2405; Q9967; 72128-26; 72131-26; 99283

== ENCOUNTER 2018-12-10 18:01 | Emergency (ER) | payer BC, OTHER ==
[2018-12-10 18:14] VITALS: BP 137/72
[2018-12-10] MEDS ORDERED: Sodium Chloride 0.9% 2.5 ML Syringe FLUSH PRN (18:15)
[2018-12-10] MEDS ORDERED: Sodium Chloride 0.9% 10 ML Syringe FLUSH PRN (18:15)
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
[2018-12-10 19:35] LABS: CHLORIDE,CL 102 mmol/L (98-107); SODIUM,NA 138 mmol/L (136-145)
--- NOTE | 2018-12-10 20:08 | US ---
INDICATION: Right upper quadrant pain for 2 weeks TECHNIQUE: Ultrasound abdomen limited. Sonographic images of the right upper quadrant were obtained using glynn-scale and color Doppler images. COMPARISON: CT 09/08/2018 FINDINGS: Liver: The liver parenchyma is normal in echotexture. Gallbladder: The neck of the gallbladder is not well demonstrated. The gallbladder wall is normal in appearance. No pericholecystic fluid is present. No sonographic Capulin sign is present. Common bile duct: 1 mm. No intrahepatic biliary ductal dilatation seen. Pancreas: The visualized portions of the pancreatic head and body are normal in appearance. Right Kidney: 12.4 cm. Mild right renal pelviectasis is present but decreased compared to prior examination. Vascular: Proximal abdominal aorta and IVC are normal in caliber. The visualized portal vein is patent with normal anterograde flow. IMPRESSION: 1. Mild right renal pelviectasis is present but decreased compared to prior examination. Dictated by Bashir Marion MD @ 12/10/2018 8:06:15 PM Dictated by: Bashir Marion MD @ 12/10/2018 20:06:18 (Electronically Signed)
== END 2018-12-10 20:25 | disposition home or self-care (01) ==
LOC: MW.ED 18:01
DX: R10.11 Right upper quadrant pain (principal)
CPT/HCPCS: 36415; 76705; 76705-26; 80053; 81001; 81025; 83690; 85025; 99284-25

== ENCOUNTER 2019-02-28 16:55 | Emergency (ER) | payer BC ==
[2019-02-28] MEDS ORDERED: Sodium Chloride 0.9% 1,000 ML IV ONE (17:02)
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
[2019-02-28 18:08] LABS: CHLORIDE,CL 105 mmol/L (98-107); SODIUM,NA 141 mmol/L (136-145)
--- NOTE | 2019-02-28 19:15 | US ---
INDICATION: Bleeding. TECHNIQUE: Ultrasound OB pelvis transvaginal. Real-time glynn-scale imaging of the pelvis was performed. COMPARISON: None. FINDINGS: Sonographic imaging demonstrates a small possible early gestational sac within the uterus, without a yolk sac or pole. The mean sac diameter of 0.46 cm corresponds to a gestational age of 5 weeks and 0 days. Ovaries are normal in size. Probable involuting corpus luteal cyst measuring 2 cm is seen in the left ovary. There are no suspicious adnexal masses. No free fluid is seen in the pelvis. IMPRESSION: Possible early gestational sac is identified with the uterus, with no yolk sac or pole seen at this time. This could be related to an early IUP, or potentially a blighted ovum. Correlate with beta HCG, with imaging follow up as clinically indicated. Dictated by Carlos Mclean MD @ 02/28/2019 7:14:02 PM Dictated by: Carlos Mclean MD @ 02/28/2019 19:14:29 (Electronically Signed)
[2019-02-28 19:26] VITALS: BP 118/75
== END 2019-02-28 19:40 | disposition home or self-care (01) ==
LOC: MW.ED 16:55
DX: O20.0 Threatened abortion (principal); Z3A.01 Less than 8 weeks gestation of pregnancy
CPT/HCPCS: 36415; 76801; 80053; 81003; 84702; 85025; 96360; 96361; 99284; J7040

== ENCOUNTER 2019-07-06 08:48 | Observation (INO) | payer BC ==
[2019-07-06] MEDS ORDERED: Vitamin B6-pyridOXINE 50 MG Tab PO ONE ×2 (09:47→10:30)
[2019-07-06] MEDS ORDERED: Sodium Chloride 0.9% 1,000 ML IV ONE (09:47)
[2019-07-06] MEDS ORDERED: Ondansetron 4 MG/2 ML SDV IVPUSH ONE (09:49)
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
[2019-07-06 11:21] LABS: BLOOD UREA NITROGEN,BUN 7 mg/dL (7.0-18.0); CARBON DIOXIDE,CO2 18.8 mmol/L (21.0-32.0); CHLORIDE,CL 102 mmol/L (98-107); GLUCOSE RANDOM 63 mg/dL (74-106); POTASSIUM,K 3.7 mmol/L (3.5-5.1); SODIUM,NA 136 mmol/L (136-145)
[2019-07-06] MEDS ORDERED: Acetaminophen 650 MG Supp RECTAL ONE (12:13)
[2019-07-06] MEDS ORDERED: Ondansetron 4 MG/2 ML SDV IVPUSH PRN (14:05)
[2019-07-06] MEDS ORDERED: Acetaminophen 650 MG Supp RECTAL PRN (14:06)
[2019-07-06] MEDS ORDERED: hydrOXYzine Pamoate 25 MG Cap PO PRN (14:09)
[2019-07-06] MEDS ORDERED: Lactated Ringers 1,000 ML IV SCH ×2 (14:15)
[2019-07-06] MEDS: Oseltamivir 75 MG Cap PO SCH ×2 (14:31→20:28)
[2019-07-06] MEDS: Lactated Ringers 1,000 ML IV SCH (15:44)
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
[2019-07-07] MEDS: Lactated Ringers 1,000 ML IV SCH ×2 (02:31→12:35)
--- NOTE | 2019-07-07 08:14 | PCM.PN ---
- General Info Date of Service: 07/07/19 Admission Dx/Problem (Free Text): Admission Diagnosis/Problem Admission Diagnosis/Problem Influenza 24yo come to ER due to cough, sore throat and chills. Tested positive for the flu. She is a EDC 10/27/2019 23 6/7wks Functional Status: Reports: Pain Controlled, Urinating. Denies: Tolerating Diet - Review of Systems General: Reports: Weakness, Fatigue, Malaise HEENT: Reports: Headaches, Sore Throat Pulmonary: Reports: Cough Cardiovascular: Reports: No Symptoms Gastrointestinal: Reports: Nausea Genitourinary: Reports: No Symptoms Skin: Reports: No Symptoms Neurological: Reports: No Symptoms Psychiatric: Reports: No Symptoms - Patient Data Vitals - Most Recent: Last Vital Signs Temp 36.8 C 07/06/19 23:49 Pulse 84 07/06/19 23:49 Resp 18 07/06/19 23:49 BP 104/60 07/06/19 23:49 Pulse Ox 98 07/06/19 23:49 Weight - Most Recent: 75.8 kg I&O - Last 24 Hours: Intake & Output 07/06/19 07/07/19 07/07/19 22:59 06:59 14:59 Intake Total 2179 1870 Output Total 300 1200 Balance 1879 670 Lab Results Last 24 Hours: Laboratory Results - last 24 hr 07/06/19 07/06/19 07/06/19 Range/Units 10:25 10:25 11:19 WBC 4.76 (4.0-11.0) K/uL RBC 3.90 L (4.30-5.90) M/uL Hgb 11.5 L (12.0-16.0) g/dL Hct 34.2 L (36.0-46.0) % MCV 87.7 (80.0-98.0) fL MCH 29.5 (27.0-32.0) pg MCHC 33.6 (31.0-37.0) g/dL RDW Std Deviation 45.8 (28.0-62.0) fl RDW Coeff of Yael 14 (11.0-15.0) % Plt Count 127 L (150-400) K/uL MPV 11.80 (7.40-12.00) fL Neutrophils % (Manual) 78 (48.0-80.0) % Lymphocytes % (Manual) 19 (16.0-40.0) % Monocytes % (Manual) 3 (0.0-15.0) % Nucleated RBC % 0.0 /100WBC Absolute Seg Neuts 3.7 (1.4-5.7) Lymphocytes # (Manual) 0.9 (0.6-2.4) Monocytes # (Manual) 0.1 (0.0-0.8) Sodium 136 (136-145) mmol/L Potassium 3.7 (3.5-5.1) mmol/L Chloride 102 (98-107) mmol/L Carbon Dioxide 18.8 L (21.0-32.0) mmol/L BUN 7 (7.0-18.0) mg/dL Creatinine 0.5 L (0.6-1.0) mg/dL Est Cr Clr Drug Dosing 145.99 mL/min Estimated GFR (MDRD) > 60.0 ml/min Glucose 63 L (74-106) mg/dL Calcium 8.8 (8.5-10.1) mg/dL Urine Color DARK YELLOW Urine Appearance CLEAR Urine pH 6.5 (5.0-8.0) Ur Specific [place] >= 1.030 (1.001-1.035) Urine Protein TRACE H (NEGATIVE) mg/dL Urine Glucose (UA) NEGATIVE (NEGATIVE) mg/dL Urine Ketones >=80 (NEGATIVE) mg/dL Urine Occult Blood NEGATIVE (NEGATIVE) Urine Nitrite NEGATIVE (NEGATIVE) Urine Bilirubin SMALL H (NEGATIVE) Urine Ictotest NEGATIVE Urine Urobilinogen 1.0 (<2.0) EU/dL Ur Leukocyte Esterase NEGATIVE (NEGATIVE) Urine RBC NONE SEEN (0-2/HPF) Urine WBC 0-1 (0-5/HPF) Ur Epithelial Cells MODERATE (NONE-FEW) Urine Bacteria 1+ H (NEGATIVE) Urine Mucus LIGHT (NONE-MOD) Carolz Results Last 24 Hours: Microbiology 07/06/19 09:03 Group A Streptococcus Rapid Screen - Final Throat NEGATIVE STREP A SCREEN REFERENCE RANGE: NEGATIVE 07/06/19 09:03 Influenza Type A Antigen Screen - Final Nasopharyngeal Swab - Nare, Unspecified NEGATIVE INFLUENZA A VIRUS AG REFERENCE RANGE: NEGATIVE Influenza Type B Antigen Screen - Final Positive Influenza B Ag Med Orders - Current: Current Medications Acetaminophen (Tylenol) 650 mg RECTAL Q4H PRN PRN Reason: Headache/Pain Benzocaine/Menthol (Cepacol Sore Throat) 1 lozenge MUCMEM .Q30M PRN PRN Reason: sore throat Hydroxyzine Pamoate (Vistaril) 50 mg PO BEDTIME PRN PRN Reason: Sleep Lactated Ringer's (Ringers, Lactated) 1,000 mls @ 999 mls/hr IV .BOLUS [facility] Last Admin: 07/06/19 14:28 Dose: 999 mls/hr Lactated Ringer's (Ringers, Lactated) 1,000 mls @ 100 mls/hr IV Q10H [facility] Last Admin: 07/07/19 02:31 Dose: 100 mls/hr Ondansetron HCl (Zofran) 8 mg IVPUSH Q4H PRN PRN Reason: Nausea/Vomiting Oseltamivir Phosphate (Tamiflu) 75 mg PO BID [facility] Last Admin: 07/06/19 20:28 Dose: 75 mg Discontinued Medications Acetaminophen (Tylenol) 650 mg RECTAL NOW ONE Stop: 07/06/19 12:14 Last Admin: 07/06/19 12:32 Dose: 650 mg Sodium Chloride (Normal Saline) 1,000 mls @ 999 mls/hr IV .BOLUS ONE Stop: 07/06/19 10:47 Last Admin: 07/06/19 10:49 Dose: 999 mls/hr Lactated Ringer's (Ringers, Lactated) 1,000 mls @ 100 mls/hr IV ASDIRECTED [facility] Ondansetron HCl (Zofran) 4 mg IVPUSH ONETIME ONE Stop: 07/06/19 09:50 Last Admin: 07/06/19 10:31 Dose: 4 mg Pyridoxine HCl (Vitamin B6-Pyridoxine) 50 mg PO ONETIME ONE Stop: 07/06/19 09:48 Last Admin: 07/06/19 10:29 Dose: Not Given Pyridoxine HCl (Vitamin B6-Pyridoxine) 50 mg PO ONETIME ONE Stop: 07/06/19 10:31 Last Admin: 07/06/19 10:33 Dose: 50 mg - Exam General: Alert, Oriented, Cooperative, No Acute Distress Lungs: Clear to Auscultation, Normal Respiratory Effort. No: Decreased Breath Sounds Cardiovascular: Regular Rate, Regular Rhythm, No Murmurs GI/Abdominal Exam: Soft, Non-Tender (Female) Exam: Deferred Back Exam: Full Range of Motion Extremities: Normal Inspection, Normal Range of Motion, Non-Tender, No Pedal Edema Skin: Warm, Dry, Intact Neurological: No New Focal Deficit, Normal Speech, Normal Tone, Strength Equal Bilateral, Sensation Intact Psy/Mental Status: Alert, Normal Affect, Normal Mood Sepsis Event Note - Evaluation Sepsis Screening Result: No Definite Risk - Focused Exam Vital Signs: Vital Signs Temp Pulse Resp BP Pulse Ox 07/06/19 23:49 36.8 C 84 18 104/60 98 Date Exam was Performed: 07/07/19 Time Exam was Performed: 08:08 - Problem List & Annotations (1) Influenza B SNOMED Code(s): 44028104 Code(s): J10.1 - FLU DUE TO OTH IDENT INFLUENZA VIRUS W OTH RESP MANIFEST Status: Acute Priority: High Current Visit: Yes (2) Supervision of normal IUP (intrauterine ) in multigravida SNOMED Code(s): 482365233, 796527689, 023481467 Code(s): Z34.90 - ENCNTR FOR SUPRVSN OF NORMAL , UNSP, UNSP TRIMESTER Status: Acute Priority: High Current Visit: No Qualifiers: Trimester: second trimester Qualified Code(s): Z34.82 - Encounter for supervision of other normal , second trimester - Problem List Review Problem List Initiated/Reviewed/Updated: Yes - My Orders Last 24 Hours: My Active Orders 07/06/19 14:05 Ondansetron [Zofran] 8 mg IVPUSH Q4H PRN 07/06/19 14:06 Acetaminophen [Tylenol] 650 mg RECTAL Q4H PRN 07/06/19 14:09 hydrOXYzine pamoate [Vistaril] 50 mg PO BEDTIME PRN 07/06/19 14:15 Lactated Ringers [Ringers, Lactated] 1,000 ml IV .BOLUS Oseltamivir [Tamiflu] 75 mg PO BID 07/06/19 15:30 Lactated Ringers [Ringers, Lactated] 1,000 ml IV Q10H 07/06/19 16:00 Vital Signs [RC] Q4H 07/06/19 Dinner Clear Liquid Diet [DIET] 07/07/19 08:05 Benzocaine/Cetylpyrd/Menthol [Cepacol Sore Throat] 1 lozenge MUCMEM .Q30M PRN 07/07/19 08:08 May Shower [RC] ASDIRECTED Up ad Griselda [RC] ASDIRECTED 07/07/19 13:00 Heart Tones [RC] Q24D - Plan Plan:: A: 24 yo EDC 10/26/2018 23 6/7wks, Influenza B P: Supportive treatment with fluids and antiemetics. Started Tamiflu today. Day 1 A: VSS, AF pulse ox 98% on room air. C/O sore throat, cough, and body aches. P: Continue plan of care, throat drops ordered for comfort. Shower and up ad griselda.
[2019-07-07] MEDS: Benzocaine/Cetylpyridinium/Menthol Lozenge MUCMEM PRN ×3 (09:28→12:36)
[2019-07-07] MEDS: Oseltamivir 75 MG Cap PO SCH (09:28)
[2019-07-07 16:48] VITALS: BP 99/57; PULSE 80
--- NOTE | 2019-07-07 17:16 | PCM.DCSUM1 ---
Discharge Summary - Hospital Course Free Text/Narrative:: Discharge home with self care. Follow up with OB provider 1 week. Continue taking the Tamiflu as directed. Diagnosis: Stroke: No Modified Hidalgo Scale: No Symptoms at All Modified Hidalgo Scale Score: 0 - Discharge Data Discharge Date: 07/07/19 Discharge Disposition: Home, Self-Care 01 Condition: Stable - Referral to Home Health Primary Care Physician: PCP None - Discharge Diagnosis/Problem(s) (1) Influenza B SNOMED Code(s): 34746290 ICD Code: J10.1 - FLU DUE TO OTH IDENT INFLUENZA VIRUS W OTH RESP MANIFEST Status: Acute Priority: High Current Visit: Yes (2) Supervision of normal IUP (intrauterine ) in multigravida SNOMED Code(s): 417689728, 374951167, 514447607 ICD Code: Z34.90 - ENCNTR FOR SUPRVSN OF NORMAL , UNSP, UNSP TRIMESTER Status: Acute Priority: High Current Visit: No Qualifiers: Trimester: second trimester Qualified Code(s): Z34.82 - Encounter for supervision of other normal , second trimester - Patient Instructions Diet: Usual Diet as Tolerated Activity: As Tolerated, No Strenuous Activities Driving: Do Not Drive Showering/Bathing: May Shower Notify Provider of: Fever, Increased Pain, Swelling and Redness, Nausea and/or Vomiting Other/Special Instructions: Discharge home with self care. Follow up with OB provider 1 week. Continue taking the Tamiflu as directed. - Discharge Plan *PRESCRIPTION DRUG MONITORING PROGRAM REVIEWED*: Not Applicable *COPY OF PRESCRIPTION DRUG MONITORING REPORT IN PATIENT ESTHER: Not Applicable Prescriptions/Med Rec: Oseltamivir [Tamiflu] 75 mg PO BID 4 Days #8 cap Home Medications: Home Meds Comb No.42/Folic Acid [Prena1 Chew Tablet] 1.4 mg PO DAILY 07/06/19 [ History] Oseltamivir [Tamiflu] 75 mg PO BID 4 Days #8 cap 07/07/19 [Rx] Oxygen Therapy Mode: Room Air Patient Handouts: Influenza, Adult, [id number] - Discharge Summary/Plan Comment DC Time >30 min.: Yes - General Info Date of Service: 07/07/19 Admission Dx/Problem (Free Text: Admission Diagnosis/Problem Admission Diagnosis/Problem Influenza 24yo come to ER due to cough, sore throat and chills. Tested positive for the flu. She is a EDC 10/27/2019 23 6/7wks Functional Status: Reports: Pain Controlled, Tolerating Diet, Ambulating, Urinating - Review of Systems General: Reports: Weakness, Chills, Appetite HEENT: Reports: No Symptoms Pulmonary: Reports: Cough Cardiovascular: Reports: No Symptoms Gastrointestinal: Reports: No Symptoms Genitourinary: Reports: No Symptoms Musculoskeletal: Reports: No Symptoms Skin: Reports: No Symptoms Neurological: Reports: No Symptoms Psychiatric: Reports: No Symptoms - Patient Data Vitals - Most Recent: Last Vital Signs Temp 35.9 C 07/07/19 16:00 Pulse 80 07/07/19 16:00 Resp 16 07/07/19 16:00 BP 99/57 L 07/07/19 16:00 Pulse Ox 96 07/07/19 16:00 Weight - Most Recent: 75.8 kg I&O - Last 24 hours: Intake & Output 07/07/19 07/07/19 07/07/19 06:59 14:59 22:59 Intake Total 1870 Output Total 1200 Balance 670 Med Orders - Current: Current Medications Acetaminophen (Tylenol) 650 mg RECTAL Q4H PRN PRN Reason: Headache/Pain Benzocaine/Menthol (Cepacol Sore Throat) 1 lozenge MUCMEM .Q30M PRN PRN Reason: sore throat Last Admin: 07/07/19 12:36 Dose: 1 lozenge Hydroxyzine Pamoate (Vistaril) 50 mg PO BEDTIME PRN PRN Reason: Sleep Lactated Ringer's (Ringers, Lactated) 1,000 mls @ 999 mls/hr IV .BOLUS [facility] Last Admin: 07/06/19 14:28 Dose: 999 mls/hr Lactated Ringer's (Ringers, Lactated) 1,000 mls @ 100 mls/hr IV Q10H [facility] Last Admin: 07/07/19 12:35 Dose: 100 mls/hr Ondansetron HCl (Zofran) 8 mg IVPUSH Q4H PRN PRN Reason: Nausea/Vomiting Last Admin: 07/07/19 09:32 Dose: 8 mg Oseltamivir Phosphate (Tamiflu) 75 mg PO BID [facility] Last Admin: 07/07/19 09:28 Dose: 75 mg Discontinued Medications Acetaminophen (Tylenol) 650 mg RECTAL NOW ONE Stop: 07/06/19 12:14 Last Admin: 07/06/19 12:32 Dose: 650 mg Sodium Chloride (Normal Saline) 1,000 mls @ 999 mls/hr IV .BOLUS ONE Stop: 07/06/19 10:47 Last Admin: 07/06/19 10:49 Dose: 999 mls/hr Lactated Ringer's (Ringers, Lactated) 1,000 mls @ 100 mls/hr IV ASDIRECTED [facility] Ondansetron HCl (Zofran) 4 mg IVPUSH ONETIME ONE Stop: 07/06/19 09:50 Last Admin: 07/06/19 10:31 Dose: 4 mg Pyridoxine HCl (Vitamin B6-Pyridoxine) 50 mg PO ONETIME ONE Stop: 07/06/19 09:48 Last Admin: 07/06/19 10:29 Dose: Not Given Pyridoxine HCl (Vitamin B6-Pyridoxine) 50 mg PO ONETIME ONE Stop: 07/06/19 10:31 Last Admin: 07/06/19 10:33 Dose: 50 mg - Exam General: Reports: Alert, Oriented, Cooperative, No Acute Distress Lungs: Reports: Normal Respiratory Effort GI/Abdominal Exam: Soft, Non-Tender (Female) Exam: Deferred Rectal (Female) Exam: Deferred Back Exam: Reports: Full Range of Motion Extremities: Normal Range of Motion, No Pedal Edema Skin: Reports: Warm, Dry, Intact Neurological: Reports: No New Focal Deficit, Normal Speech, Normal Tone, Strength Equal Bilateral, Sensation Intact Psy/Mental Status: Reports: Alert, Normal Affect, Normal Mood
== END 2019-07-07 18:25 | disposition home or self-care (01) ==
LOC: MW.ED 08:48 → MW.MS 12:35
PROVIDERS: ADMIT Obstetrics & Gynecology; ATTEND Obstetrics & Gynecology
DX: O99.512 Diseases of the respiratory system complicating pregnancy, second trimester (principal); J10.1 Influenza due to other identified influenza virus with other respiratory manifestations; O99.612 Diseases of the digestive system complicating pregnancy, second trimester; K21.9 Gastro-esophageal reflux disease without esophagitis; O99.342 Other mental disorders complicating pregnancy, second trimester; F41.9 Anxiety disorder, unspecified; F32.9 Major depressive disorder, single episode, unspecified; O99.89 Other specified diseases and conditions complicating pregnancy, childbirth and the puerperium; M17.0 Bilateral primary osteoarthritis of knee; Z3A.23 23 weeks gestation of pregnancy; Z88.1 Allergy status to other antibiotic agents; Z88.8 Allergy status to other drugs, medicaments and biological substances; Z91.048 Other nonmedicinal substance allergy status
CPT/HCPCS: 36415; 80048; 81001; 85007; 85027; 87081; 87804; 87880; A9270; J2405; J7030; J7120; 96361; 96374; 99284-25

== ENCOUNTER 2021-07-16 09:36 | Emergency (ER) | payer BC ==
[2021-07-16] MEDS ORDERED: Ketorolac 30 MG/ML SDV IM ONE (09:59)
[2021-07-16 11:21] VITALS: BP 110/77; PULSE 74
== END 2021-07-16 11:21 | disposition home or self-care (01) ==
LOC: MW.ED 09:36
DX: S93.401A Sprain of unspecified ligament of right ankle, initial encounter (principal); Z88.0 Allergy status to penicillin; Z88.8 Allergy status to other drugs, medicaments and biological substances; Z91.048 Other nonmedicinal substance allergy status; W10.8XXA Fall (on) (from) other stairs and steps, initial encounter
CPT/HCPCS: 73610; 73620; 96372; 99283; J1885

== ENCOUNTER 2021-09-27 13:05 | Emergency (ER) | payer BC ==
[2021-09-27] MEDS ORDERED: Sodium Chloride 0.9% 2.5 ML Syringe FLUSH PRN (13:20)
[2021-09-27] MEDS ORDERED: Sodium Chloride 0.9% 10 ML Syringe FLUSH PRN (13:20)
[2021-09-27] MEDS ORDERED: Ketorolac 30 MG/ML SDV IVPUSH ONE (13:21)
[2021-09-27 13:48] LABS: BLOOD UREA NITROGEN,BUN 11 mg/dL (7.0-18.0); CHLORIDE,CL 105 mmol/L (98-107); GLUCOSE RANDOM 100 mg/dL (74-106); POTASSIUM,K 3.6 mmol/L (3.5-5.1); SODIUM,NA 139 mmol/L (136-145)
[2021-09-27] MEDS ORDERED: Alum Hydro/Mag Hydro/Simeth XS 15 ML, Lidocaine 2% 5 ML PO ONE ×2 (16:01)
[2021-09-27 17:13] VITALS: BP 130/86; PULSE 82
== END 2021-09-27 17:00 | disposition home or self-care (01) ==
LOC: MW.ED 13:05
DX: K21.9 Gastro-esophageal reflux disease without esophagitis (principal); Z88.0 Allergy status to penicillin; Z91.048 Other nonmedicinal substance allergy status; Z88.8 Allergy status to other drugs, medicaments and biological substances; Z79.899 Other long term (current) drug therapy
CPT/HCPCS: 36415; 71045; 76705; 80053; 84484; 85025; 85379; 93005; 96374; 99285; A9270; J1885; 93010; 99283

== ENCOUNTER 2022-09-24 12:38 | Emergency (ER) | payer BC ==
[2022-09-24] MEDS ORDERED: Ketorolac 30 MG/ML SDV IVPUSH ONE (13:39)
[2022-09-24 14:39] LABS: CARBON DIOXIDE,CO2 23.9 mmol/L (21.0-32.0); POTASSIUM,K 4.1 mmol/L (3.5-5.1)
[2022-09-24] MEDS ORDERED: Iopamidol 755 MG/ML 500 ML Multipack Bottle IVPUSH STA (14:52)
[2022-09-24 19:06] VITALS: BP 128/84; PULSE 72
== END 2022-09-24 16:27 | disposition home or self-care (01) ==
LOC: MW.ED 12:38
DX: N83.201 Unspecified ovarian cyst, right side (principal); Z88.0 Allergy status to penicillin; Z88.8 Allergy status to other drugs, medicaments and biological substances; Z91.048 Other nonmedicinal substance allergy status; Z98.890 Other specified postprocedural states
CPT/HCPCS: 36415; 74177; 80053; 85025; 96374; 99284; J1885; Q9967

== ENCOUNTER 2022-11-23 22:11 | Emergency (ER) | payer BC ==
[2022-11-23 22:57] VITALS: BP 124/75
[2022-11-23] MEDS ORDERED: Ibuprofen 600 MG Tab PO ONE (23:08)
[2022-11-23 23:35] VITALS: PULSE 67
== END 2022-11-23 23:35 | disposition home or self-care (01) ==
LOC: MW.ED 22:11
DX: S63.501A Unspecified sprain of right wrist, initial encounter (principal); Z88.0 Allergy status to penicillin; Z91.048 Other nonmedicinal substance allergy status; Z88.8 Allergy status to other drugs, medicaments and biological substances; Z86.16 Personal history of COVID-19; X50.1XXA Overexertion from prolonged static or awkward postures, initial encounter
CPT/HCPCS: 73110; 73120; 99283; A9270

== ENCOUNTER 2023-03-31 18:38 | Emergency (ER) | payer BC ==
[2023-03-31] MEDS ORDERED: Ketorolac 30 MG/ML SDV IVPUSH ONE (19:32)
[2023-03-31] MEDS ORDERED: Lactated Ringers 1,000 ML IV SCH (19:45)
[2023-03-31 19:52] LABS: BASOPHILS PERCENT AUTO 0.2 % (0.0-1.5); EOSINOPHILS ABSOLUTE AUTO 0.1 K/uL (0.0-0.7); EOSINOPHILS PERCENT AUTO 1.1 % (0.0-7.0); HEMATOCRIT 35.7 % (36.0-46.0); HEMOGLOBIN 11.7 g/dL (12.0-16.0); LYMPHOCYTES ABSOLUTE AUTO 1.6 K/uL (0.6-2.4); LYMPHOCYTES PERCENT AUTO 25.3 % (16.0-40.0); MEAN CORPUSCULAR HEMOGLOBIN 27.3 pg (27.0-32.0); MEAN CORPUSCULAR HGB CONC 32.8 g/dL (31.0-37.0); MEAN CORPUSCULAR VOLUME 83.2 fL (80.0-98.0); MONOCYTES ABSOLUTE AUTO 0.5 K/uL (0.0-0.8); MONOCYTES PERCENT AUTO 7.3 % (0.0-15.0); NEUTROPHILS ABSOLUTE AUTO 4.1 K/uL (1.4-5.7); NEUTROPHILS PERCENT AUTO 66.1 % (48.0-80.0); NRBC ABSOLUTE 0 K/uL; PLATELET COUNT,PLT 267 K/uL (150-400); RED BLOOD CELL COUNT 4.29 M/uL (4.30-5.90); WHITE BLOOD CELL COUNT,WBC 6.16 K/uL (4.0-11.0)
[2023-03-31] MEDS ORDERED: Iopamidol 755 MG/ML 500 ML Multipack Bottle IVPUSH ONE (20:07)
[2023-03-31 20:20] LABS: ALBUMIN 3.7 g/dL (3.4-5.0); BILIRUBIN TOTAL 0.2 mg/dL (0.2-1.0); CARBON DIOXIDE,CO2 25.4 mmol/L (21.0-32.0); CREATININE 0.6 mg/dL (0.6-1.0); EST CRCL DRUG DOSING (CG) 118.57 mL/min; POTASSIUM,K 3.4 mmol/L (3.5-5.1); PROTEIN TOTAL,TP 7.4 g/dL (6.4-8.2)
[2023-03-31 20:28] LABS: MAGNESIUM 1.9 mg/dL (1.8-2.4); TSH ULTRASENSITIVE 1.91 uIU/mL (0.36-3.74)
[2023-03-31 21:46] VITALS: BP 139/81; PULSE 69
== END 2023-03-31 21:45 | disposition home or self-care (01) ==
LOC: MW.ED 18:38
DX: R20.2 Paresthesia of skin (principal); Z88.0 Allergy status to penicillin; Z88.8 Allergy status to other drugs, medicaments and biological substances; Z91.048 Other nonmedicinal substance allergy status; Z86.16 Personal history of COVID-19; Z98.890 Other specified postprocedural states
CPT/HCPCS: 36415; 70491; 80053; 83735; 84443; 84703; 85025; 96361; 96374; 99284; J1885; J7120; Q9967

== ENCOUNTER 2023-04-02 23:24 | Emergency (ER) | payer BC ==
[2023-04-02] MEDS ORDERED: Racepinephrine 2.25% 0.5 ML Neb Soln NEB ONE (23:26)
[2023-04-02] MEDS ORDERED: Ondansetron 4 MG/2 ML SDV IVPUSH ONE (23:26)
[2023-04-02] MEDS ORDERED: Sodium Chloride 0.9% Inhalation Soln 3 ML Neb INH PRN (23:26)
[2023-04-02] MEDS ORDERED: Tranexamic Acid 1,000 MG in Sodium Chloride 0.9% 100 ML IV ONE (23:32)
[2023-04-02] MEDS ORDERED: Tranexamic Acid 1,000 MG/10 ML Vial ONE (23:33)
[2023-04-02 23:43] LABS: BASOPHILS PERCENT AUTO 0.2 % (0.0-1.5); EOSINOPHILS ABSOLUTE AUTO 0.1 K/uL (0.0-0.7); HEMATOCRIT 37.1 % (36.0-46.0); HEMOGLOBIN 12.5 g/dL (12.0-16.0); LYMPHOCYTES ABSOLUTE AUTO 2.5 K/uL (0.6-2.4); LYMPHOCYTES PERCENT AUTO 27.6 % (16.0-40.0); MEAN CORPUSCULAR HGB CONC 33.7 g/dL (31.0-37.0); MEAN CORPUSCULAR VOLUME 83.2 fL (80.0-98.0); MONOCYTES ABSOLUTE AUTO 0.6 K/uL (0.0-0.8); MONOCYTES PERCENT AUTO 6.7 % (0.0-15.0); NEUTROPHILS ABSOLUTE AUTO 5.8 K/uL (1.4-5.7); NEUTROPHILS PERCENT AUTO 64.5 % (48.0-80.0); PLATELET COUNT,PLT 298 K/uL (150-400); RED BLOOD CELL COUNT 4.46 M/uL (4.30-5.90); WHITE BLOOD CELL COUNT,WBC 9.05 K/uL (4.0-11.0)
[2023-04-02] MEDS ORDERED: Midazolam HCl In 0.9 % NaCl/Pf 100 ML IV SCH (23:45)
[2023-04-02] MEDS ORDERED: Ketamine 500 mg/10 ML MDV IV ONE (23:49)
[2023-04-02] MEDS ORDERED: fentaNYL/Normal Saline 2,500 MCG in Premix Bag 1 BAG IV PRN (23:51)
[2023-04-02] MEDS ORDERED: Rocuronium 50 MG/5 ML Vial IV ONE (23:52)
[2023-04-02] MEDS ORDERED: fentaNYL/Normal Saline 250 ML ONE (23:55)
[2023-04-02 23:57] LABS: ALBUMIN 4.2 g/dL (3.4-5.0); BILIRUBIN TOTAL 0.2 mg/dL (0.2-1.0); CALCIUM 9.4 mg/dL (8.5-10.1); CARBON DIOXIDE,CO2 25.9 mmol/L (21.0-32.0); CREATININE 0.8 mg/dL (0.6-1.0); EST CRCL DRUG DOSING (CG) 88.93 mL/min; PROTEIN TOTAL,TP 8.2 g/dL (6.4-8.2)
[2023-04-03] MEDS ORDERED: Lidocaine 1% 5 ML VIAL ONE (00:08)
[2023-04-03] MEDS ORDERED: Propofol 200 MG/20 ML SDV IVPUSH ONE (00:15)
[2023-04-03] MEDS ORDERED: Midazolam 5 MG/ML SDV ONE (00:24)
[2023-04-03] MEDS: Propofol 200 MG/20 ML SDV ONE ×2 (00:29→00:32)
[2023-04-03] MEDS ORDERED: Tranexamic Acid 1,000 MG/10 ML Vial ONE (00:38)
[2023-04-03] MEDS ORDERED: Lidocaine/Epineph/Tetracaine 3 ML Syringe ONE (00:43)
[2023-04-03] MEDS ORDERED: fentaNYL 100 MCG/2 ML SDV ONE ×2 (00:43→00:50)
[2023-04-03] MEDS ORDERED: fentaNYL 100 MCG/2 ML SDV IVPUSH ONE (00:52)
[2023-04-03] MEDS ORDERED: Rocuronium 100 MG/10 ML MDV IV ONE (00:53)
[2023-04-03] MEDS ORDERED: Propofol 200 MG/20 ML SDV ONE (00:54)
[2023-04-03 01:45] VITALS: BP 136/93
[2023-04-03 01:46] VITALS: PULSE 96
== END 2023-04-03 01:31 ==
LOC: MW.ED 23:24
DX: J95.831 Postprocedural hemorrhage of a respiratory system organ or structure following other procedure (principal); Z86.16 Personal history of COVID-19; Z98.890 Other specified postprocedural states; Z88.0 Allergy status to penicillin; Z88.8 Allergy status to other drugs, medicaments and biological substances; Z91.048 Other nonmedicinal substance allergy status
CPT/HCPCS: 31500; 36415; 36430; 43752; 51702; 71045; 80053; 85025; 86850; 86900; 86901; 86920; 96374; 99291; A9270; J2250; J2251; J2405; J2704; J3010; J3490; P9016

== ENCOUNTER 2023-09-24 14:29 | Emergency (ER) | payer BC ==
[2023-09-24 15:09] LABS: BASOPHILS ABSOLUTE AUTO 0.05 K/uL (0.00-0.20); BASOPHILS PERCENT AUTO 0.6 % (0.0-1.0); EOSINOPHILS ABSOLUTE AUTO 0.26 K/uL (0.00-0.45); HEMATOCRIT 39.3 % (37.0-47.0); HEMOGLOBIN 13.2 g/dL (12.0-16.0); IMMATURE GRAN ABSOLUTE AUTO 0.03 K/uL (0.00-0.05); IMMATURE GRAN PERCENT AUTO 0.3 % (0.0-0.4); LYMPHOCYTES ABSOLUTE AUTO 1.81 K/uL (1.00-4.80); MEAN CORPUSCULAR HEMOGLOBIN 27.2 pg (28.0-32.0); MEAN CORPUSCULAR HGB CONC 33.6 g/dL (32.0-36.0); MEAN PLATELET VOLUME 10.6 fL (9.4-12.3); MONOCYTES ABSOLUTE AUTO 0.47 K/uL (0.00-0.80); MONOCYTES PERCENT AUTO 5.4 % (0.0-8.0); NEUTROPHILS ABSOLUTE AUTO 6.01 K/uL (1.80-7.70); NEUTROPHILS PERCENT AUTO 69.7 % (41.0-71.0); PLATELET COUNT,PLT 238 K/uL (150-400); RED BLOOD CELL COUNT 4.85 M/uL (4.10-5.30); WHITE BLOOD CELL COUNT,WBC 8.63 K/uL (3.9-11.3)
[2023-09-24] MEDS: Sodium Chloride 0.9% 1,000 ML IV ONE (15:09)
[2023-09-24] MEDS: Ondansetron 4 MG/2 ML SDV IVPUSH ONE ×2 (15:09→15:45)
[2023-09-24] MEDS: Sodium Chloride 0.9% 10 ML Syringe FLUSH PRN (15:10)
[2023-09-24] MEDS: Sodium Chloride 0.9% 2.5 ML Syringe FLUSH PRN (15:10)
[2023-09-24 15:19] LABS: APPEARANCE,URINE CLEAR; BILIRUBIN,URINE NEGATIVE (NEGATIVE); COLOR,URINE YELLOW; GLUCOSE,URINE NEGATIVE (NEGATIVE); KETONES,URINE NEGATIVE (NEGATIVE); LEUKOCYTE ESTERASE,URINE NEGATIVE (NEGATIVE); NITRITE,URINE NEGATIVE (NEGATIVE); OCCULT BLOOD,URINE NEGATIVE (NEGATIVE); PROTEIN,URINE NEGATIVE (NEGATIVE); UROBILINOGEN,URINE 0.2 EU/dL (<2.0)
[2023-09-24 15:30] LABS: ALBUMIN 4.2 g/dL (3.4-5.0); BILIRUBIN TOTAL 0.3 mg/dL (0.2-1.0); CALCIUM 9.4 mg/dL (8.5-10.1); CREATININE 0.8 mg/dL (0.6-1.0); EST CRCL DRUG DOSING (CG) 88.15 mL/min; MAGNESIUM 1.9 mg/dL (1.8-2.4); POTASSIUM,K 4.1 mmol/L (3.5-5.1); PROTEIN TOTAL,TP 8.3 g/dL (6.4-8.2)
[2023-09-24] MEDS: Ketorolac 30 MG/ML SDV IVPUSH ONE (15:45)
[2023-09-24 16:11] LABS: CORONAVIRUS COVID-19 NAA NEGATIVE (NEGATIVE); INFLUENZA A NAA NEGATIVE (NEGATIVE); INFLUENZA B NAA NEGATIVE (NEGATIVE)
[2023-09-24] MEDS: Iopamidol 755 MG/ML 500 ML Multipack Bottle IVPUSH STA (16:12)
[2023-09-24] MEDS: metroNIDAZOLE 250 MG Tab PO ONE (18:25)
[2023-09-24 18:35] VITALS: BP 122/80; PULSE 85
== END 2023-09-24 18:34 | disposition home or self-care (01) ==
LOC: MW.ED 14:29
DX: K52.9 Noninfective gastroenteritis and colitis, unspecified (principal); E86.0 Dehydration; Z88.0 Allergy status to penicillin; Z88.8 Allergy status to other drugs, medicaments and biological substances; Z91.048 Other nonmedicinal substance allergy status; Z79.899 Other long term (current) drug therapy; Z75.8 Other problems related to medical facilities and other health care
CPT/HCPCS: 0240U; 36415; 74177; 80053; 81003; 83690; 83735; 84703; 85025; 96361; 96374; 96375; 99284; A9270; J1885; J2405; J3490; J7030; Q9967

== ENCOUNTER 2023-10-21 07:14 | Emergency (ER) | payer BC ==
[2023-10-21] MEDS: Sodium Chloride 0.9% 10 ML Syringe FLUSH PRN (07:51)
[2023-10-21] MEDS: Sodium Chloride 0.9% 1,000 ML IV ONE (07:51)
[2023-10-21] MEDS: Morphine 2 MG/ML SYRINGE IVPUSH ONE (07:51)
[2023-10-21] MEDS: Ondansetron 4 MG/2 ML SDV IVPUSH ONE (07:51)
[2023-10-21] MEDS: Sodium Chloride 0.9% 2.5 ML Syringe FLUSH PRN (07:51)
[2023-10-21 08:06] LABS: BASOPHILS ABSOLUTE AUTO 0.02 K/uL (0.00-0.20); BASOPHILS PERCENT AUTO 0.3 % (0.0-1.0); EOSINOPHILS ABSOLUTE AUTO 0.07 K/uL (0.00-0.45); HEMOGLOBIN 13.1 g/dL (12.0-16.0); IMMATURE GRAN ABSOLUTE AUTO 0.02 K/uL (0.00-0.05); IMMATURE GRAN PERCENT AUTO 0.3 % (0.0-0.4); LYMPHOCYTES ABSOLUTE AUTO 1.28 K/uL (1.00-4.80); LYMPHOCYTES PERCENT AUTO 17.7 % (24.0-44.0); MEAN CORPUSCULAR HEMOGLOBIN 27.9 pg (28.0-32.0); MEAN CORPUSCULAR HGB CONC 33.6 g/dL (32.0-36.0); MEAN CORPUSCULAR VOLUME 83.2 fL (83.0-99.0); MEAN PLATELET VOLUME 10.2 fL (9.4-12.3); MONOCYTES ABSOLUTE AUTO 0.45 K/uL (0.00-0.80); MONOCYTES PERCENT AUTO 6.2 % (0.0-8.0); NEUTROPHILS ABSOLUTE AUTO 5.41 K/uL (1.80-7.70); NEUTROPHILS PERCENT AUTO 74.5 % (41.0-71.0); PLATELET COUNT,PLT 227 K/uL (150-400); RED BLOOD CELL COUNT 4.69 M/uL (4.10-5.30); WHITE BLOOD CELL COUNT,WBC 7.25 K/uL (3.9-11.3)
[2023-10-21 08:13] LABS: APPEARANCE,URINE CLEAR; COLOR,URINE YELLOW; GLUCOSE,URINE NEGATIVE (NEGATIVE); KETONES,URINE NEGATIVE (NEGATIVE); LEUKOCYTE ESTERASE,URINE NEGATIVE (NEGATIVE); NITRITE,URINE NEGATIVE (NEGATIVE); OCCULT BLOOD,URINE NEGATIVE (NEGATIVE); PROTEIN,URINE NEGATIVE (NEGATIVE); UROBILINOGEN,URINE 0.2 EU/dL (<2.0)
[2023-10-21 08:14] LABS: BILIRUBIN,URINE SMALL (NEGATIVE)
[2023-10-21 08:27] LABS: A/G RATIO 1.1 (0.9-1.6); ALBUMIN 4.2 g/dL (3.4-5.0); BILIRUBIN TOTAL 0.4 mg/dL (0.2-1.0); CALCIUM 9.5 mg/dL (8.5-10.1); CARBON DIOXIDE,CO2 23.8 mmol/L (21.0-32.0); CREATININE 0.8 mg/dL (0.6-1.0); EST CRCL DRUG DOSING (CG) 88.15 mL/min; POTASSIUM,K 4.5 mmol/L (3.5-5.1); PROTEIN TOTAL,TP 8.1 g/dL (6.4-8.2)
[2023-10-21 08:53] LABS: CORONAVIRUS COVID-19 NAA NEGATIVE (NEGATIVE); INFLUENZA A NAA NEGATIVE (NEGATIVE); INFLUENZA B NAA NEGATIVE (NEGATIVE); RESPIRATORY SYNCYTIAL VIR NAA NEGATIVE (NEGATIVE)
[2023-10-21] MEDS: Iopamidol 755 MG/ML 500 ML Multipack Bottle IVPUSH STA (09:01)
[2023-10-21 10:43] VITALS: BP 105/61; PULSE 71
== END 2023-10-21 10:37 | disposition home or self-care (01) ==
LOC: MW.ED 07:14
DX: R10.31 Right lower quadrant pain (principal); Z88.0 Allergy status to penicillin; Z88.8 Allergy status to other drugs, medicaments and biological substances; Z79.899 Other long term (current) drug therapy; Z79.85 Long-term (current) use of injectable non-insulin antidiabetic drugs
CPT/HCPCS: 0241U; 36415; 74177; 80053; 81003; 81025; 83690; 85025; 96361; 96374; 96375; 99284; J2270; J2405; J3490; J7030; Q9967

== ENCOUNTER 2023-11-14 16:24 | Emergency (ER) | payer BC ==
[2023-11-14 16:44] VITALS: BP 116/83; PULSE 72
[2023-11-14] MEDS: Sodium Chloride 0.9% 1,000 ML IV ONE (17:35)
[2023-11-14 17:36] LABS: BASOPHILS ABSOLUTE AUTO 0.02 K/uL (0.00-0.20); BASOPHILS PERCENT AUTO 0.3 % (0.0-1.0); EOSINOPHILS ABSOLUTE AUTO 0.05 K/uL (0.00-0.45); EOSINOPHILS PERCENT AUTO 0.8 % (0.0-6.0); HEMATOCRIT 36.9 % (37.0-47.0); HEMOGLOBIN 12.5 g/dL (12.0-16.0); IMMATURE GRAN ABSOLUTE AUTO 0.01 K/uL (0.00-0.05); IMMATURE GRAN PERCENT AUTO 0.2 % (0.0-0.4); LYMPHOCYTES ABSOLUTE AUTO 1.36 K/uL (1.00-4.80); LYMPHOCYTES PERCENT AUTO 20.4 % (24.0-44.0); MEAN CORPUSCULAR HEMOGLOBIN 28.3 pg (28.0-32.0); MEAN CORPUSCULAR HGB CONC 33.9 g/dL (32.0-36.0); MEAN CORPUSCULAR VOLUME 83.5 fL (83.0-99.0); MEAN PLATELET VOLUME 10.5 fL (9.4-12.3); MONOCYTES ABSOLUTE AUTO 0.44 K/uL (0.00-0.80); MONOCYTES PERCENT AUTO 6.6 % (0.0-8.0); NEUTROPHILS ABSOLUTE AUTO 4.78 K/uL (1.80-7.70); NEUTROPHILS PERCENT AUTO 71.7 % (41.0-71.0); PLATELET COUNT,PLT 218 K/uL (150-400); RED BLOOD CELL COUNT 4.42 M/uL (4.10-5.30); WHITE BLOOD CELL COUNT,WBC 6.66 K/uL (3.9-11.3)
[2023-11-14] MEDS: Proparacaine 0.5% Ophth Soln 15 ML Bottle EYERT STA (17:36)
[2023-11-14] MEDS: Sodium Chloride 0.9% 2.5 ML Syringe FLUSH PRN (17:36)
[2023-11-14] MEDS: diphenhydrAMINE 50 MG/ML SDV IVPUSH ONE (17:36)
[2023-11-14] MEDS: Sodium Chloride 0.9% 10 ML Syringe FLUSH PRN (17:36)
[2023-11-14] MEDS: Prochlorperazine 10 MG/2 ML SDV IVPUSH ONE (17:36)
[2023-11-14 18:12] LABS: ALBUMIN 3.8 g/dL (3.4-5.0); BILIRUBIN TOTAL 0.2 mg/dL (0.2-1.0); CARBON DIOXIDE,CO2 25.6 mmol/L (21.0-32.0); CREATININE 0.7 mg/dL (0.6-1.0); EST CRCL DRUG DOSING (CG) 100.74 mL/min; MAGNESIUM 1.7 mg/dL (1.8-2.4); POTASSIUM,K 3.7 mmol/L (3.5-5.1); PROTEIN TOTAL,TP 7.6 g/dL (6.4-8.2)
== END 2023-11-14 18:06 | disposition left against medical advice (07) ==
LOC: MW.ED 16:24
DX: R20.2 Paresthesia of skin (principal); R51.9 Headache, unspecified; Z79.899 Other long term (current) drug therapy; Z75.8 Other problems related to medical facilities and other health care; Z88.0 Allergy status to penicillin; Z88.8 Allergy status to other drugs, medicaments and biological substances; Z91.048 Other nonmedicinal substance allergy status
CPT/HCPCS: 36415; 80053; 83735; 85025; 96361; 96374; 96375; 99284; J0780; J1200; J3490; J7030